=== PATIENT | male | born 1970 | race Hispanic/Latino ===

== ENCOUNTER 2020-11-18 20:38 | Emergency (ER) | payer SELFPAY ==
[~2020-11-18 20:38] MED LIST: EPINEPHrine 1 MG/10 ML SYRINGE ONE; SODIUM BICARB 8.4% 50 MEQ/50 ML SYRINGE IV ONE; SODIUM CHLORIDE IV ONE
[2020-11-18] MEDS ORDERED: SODIUM CHLORIDE 0.9% 1000 ML IV SOLN IV ONE (21:05)
[2020-11-18] MEDS ORDERED: VANCOMYCIN 1,000 MG in SODIUM CHLORIDE 0.9% 500 ML 500 ML IV ONE (21:05)
[2020-11-18] MEDS ORDERED: PIPERACIL/TAZOBACTA 4.5/NS 100 4.5 GM/100 ML VIAL IV ONE (21:05)
--- NOTE | 2020-11-18 21:16 | XRay Report ---
CHEST 1 VIEW 11/18/2020 8:48 PM INDICATION / CLINICAL INFORMATION: AMS. COMPARISON: None available. FINDINGS: SUPPORT DEVICES: None. HEART / MEDIASTINUM: No significant abnormality. LUNGS / PLEURA: There is a moderate right pleural effusion with right basilar opacification. No pneum othorax. ADDITIONAL FINDINGS: No significant additional findings. IMPRESSION: 1. Moderate right pleural effusion with right basilar opacification. Underlying infectious process is not excluded. Signer Name: Virgilio Briones DO Signed: 11/18/2020 9:11 PM Workstation Name: [id number]
[2020-11-18 21:32] LABS: Mean Corpuscular HGB Conc 32 % (32-34); Platelet Count 186 K/mm3 (140-440); Red Blood Count 1.28 M/mm3 (3.65-5.03); Red Cell Distribution Width 19.3 % (13.2-15.2)
[2020-11-18 21:34] LABS: Hematocrit 16.2 % (35.5-45.6); Hemoglobin 5.2 gm/dl (11.8-15.2); Mean Corpuscular Volume 127 fl (84-94)
[2020-11-18] MEDS ORDERED: SODIUM CHLORIDE 0.9% 500 ML 500 ML IV ONE (21:45)
[2020-11-18 21:49] LABS: Albumin 2.1 g/dL (3.9-5); Calcium 8.4 mg/dL (8.4-10.2)
[2020-11-18 21:50] LABS: INR 3.51 (0.87-1.13)
[2020-11-18 21:51] LABS: Partial Thromboplastin Time 55.9 Sec. (24.2-36.6)
[2020-11-18] MEDS ORDERED: VANCOMYCIN/NS 1 GM/250 ML 1 GM/250 ML BAG IV ONE (22:13)
[2020-11-18 22:52] LABS: Band Neutrophils # (Manual) 0.3 K/mm3; Total Cells Counted 100
[2020-11-18 22:54] LABS: Anisocytosis 1+; Macrocytosis 2+; Platelet Estimate Consistent w Auto
[2020-11-18] MEDS ORDERED: NORepinephrine/NS 4 MG-250 ML 4 MG/250 ML BAG IV SCH ×2 (23:00)
[2020-11-18 23:26] VITALS: BP 86/37
--- NOTE | 2020-11-19 00:32 | Emergency Department Report ---
ED Altered Mental Status HPI - General Chief Complaint: Altered Mental Status Stated Complaint: HERNIA Time Seen by Provider: 11/18/20 20:41 Source: EMS Mode of arrival: Stretcher Limitations: Altered Mental Status - History of Present Illness Initial Comments: 50-year-old male, unknown past medical history, presents to ED with altered mental status. Apparently EMS was called by patient's friend for altered mental status. Only history that was given by the friend is that patient has a multiyear history of right inguinal hernia. EMS reports patient was in unkempt conditions. Patient hypotensive. Patient is altered and unable to give any history. MD Complaint: altered mental status -: unknown Severity: severe Consistency of Symptoms: constant Treatments Prior to Arrival: IV fluid - Related Data Allergies Allergy/AdvReac Type Severity Reaction Status Date / Time No Known Drug Allergies Allergy Unknown Verified 11/18/20 20:56 ED Review of Systems ROS: Stated complaint: HERNIA Other details as noted in HPI Comment: Unobtainable due to pts medical conditions ED Past Medical Hx - Past Medical History Previous Medical History?: No - Surgical History Past Surgical History?: No - Social History Smoking Status: Unknown if ever smoked Substance Use Type: None ED Physical Exam - General Limitations: Altered Mental Status General appearance: obtunded - Head Head exam: Present: atraumatic, normocephalic - Eye Eye exam: Present: PERRL, EOMI, scleral icterus - ENT ENT exam: Present: mucous membranes dry - Neck Neck exam: Present: normal inspection - Respiratory Respiratory exam: Present: normal lung sounds bilaterally, respiratory distress, other (Tachypnea) - Cardiovascular Cardiovascular Exam: Present: normal rhythm, tachycardia - GI/Abdominal GI/Abdominal exam: Present: soft. Absent: distended - exam: Present: other (Severe swelling to right scrotum, slightly larger than a football, with areas that appear to be gangrenous and purulent discharge present) - Extremities Exam Extremities exam: Present: other (Edema present to bilateral lower extremities, right greater than left) - Neurological Exam Neurological exam: Present: altered - Psychiatric Psychiatric exam: Present: flat affect - Skin Skin exam: Present: warm, dry, other (Severely jaundiced) ED Course Vital Signs 11/18/20 11/18/20 11/18/20 20:50 20:55 21:02 Temperature 97.0 F L Pulse Rate 112 H 108 H Respiratory 20 31 H Rate Blood Pressure O2 Sat by Pulse 97 Oximetry 11/18/20 11/18/20 11/18/20 21:07 21:16 21:30 Temperature Pulse Rate 103 H 104 H Respiratory 26 H 32 H Rate Blood Pressure 73/31 86/24 O2 Sat by Pulse 98 99 100 Oximetry 11/18/20 11/18/20 11/18/20 21:45 22:00 22:15 Temperature Pulse Rate 104 H 105 H 102 H Respiratory 28 H 31 H 32 H Rate Blood Pressure 78/23 82/25 84/33 O2 Sat by Pulse 100 100 100 Oximetry 11/18/20 11/18/20 11/18/20 22:30 22:46 23:00 Temperature Pulse Rate 97 H 90 Respiratory 35 H 34 H 28 H Rate Blood Pressure 76/27 81/27 75/27 O2 Sat by Pulse 100 100 100 Oximetry 11/18/20 23:16 Temperature Pulse Rate 92 H Respiratory 28 H Rate Blood Pressure 86/37 O2 Sat by Pulse 90 Oximetry - Reevaluation(s) Reevaluation #1: 11/18/20 23:22 Had extensive conversation with the brother Anthony Joel and family friend Clayton Castillo here in the ED. Clayton is the friend that called [phone] mónica. They both report that patient had longstanding history of alcohol abuse. It is also reported that patient was urged by the both of them to seek medical attention for his hernia and declining health, however patient refused. Patient had not seen a physician in quite some time. Spoke with them regarding patient's abnormal lab values. 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 Reevaluation #2: 11/19/20 00:38 00:[address] scanner for CODE BLUE. Patient asystole, pulseless, apneic. ACLS was initiated. Patient was bagged throughout the code with [id number]. O2 sats 100% throughout. Patient received 3 rounds of ACLS which included sodium bicarb x1 and epi x3. Patient remained in asystole. Ultimately unable to achieve ROSC. Time of was called at 00:14. Reevaluation #3: 11/19/20 00:53 I spoke w/ patient's brother over the phone to notify him of patient's . - Lab Data Result diagrams: 11/18/20 20:59 11/18/20 20:59 Lab Results 11/18/20 11/18/20 11/18/20 Range/Units 20:59 20:59 20:59 WBC 28.3 H (4.5-11.0) K/mm3 RBC 1.28 L (3.65-5.03) M/mm3 Hgb 5.2 L* (11.8-15.2) gm/dl Hct 16.2 L* (35.5-45.6) % MCV 127 H (84-94) fl MCH 41 H (28-32) pg MCHC 32 (32-34) % RDW 19.3 H (13.2-15.2) % Plt Count 186 (140-440) K/mm3 Lymph # (Auto) Master Rigger Add Manual Diff Complete Total Counted 100 Seg Neuts % (Manual) 83.0 H (40.0-70.0) % Band Neutrophils % 1.0 % Lymphocytes % (Manual) 8.0 L (13.4-35.0) % Monocytes % (Manual) 7.0 (0.0-7.3) % Metamyelocytes % 1.0 % Nucleated RBC % 9.0 H (0.0-0.9) % Seg Neutrophils # Man 25.6 H (1.8-7.7) K/mm3 Band Neutrophils # 0.3 K/mm3 Lymphocytes # (Manual) 2.5 (1.2-5.4) K/mm3 Abs React Lymphs (Man) 0.0 K/mm3 Monocytes # (Manual) 2.2 H (0.0-0.8) K/mm3 Eosinophils # (Manual) 0.0 (0.0-0.4) K/mm3 Basophils # (Manual) 0.0 (0.0-0.1) K/mm3 Metamyelocytes # 0.3 K/mm3 Myelocytes # 0.0 K/mm3 Promyelocytes # 0.0 K/mm3 Blast Cells # 0.0 K/mm3 WBC Morphology Not Reportable Hypersegmented Neuts Not Reportable Hyposegmented Neuts Not Reportable Hypogranular Neuts Not Reportable Smudge Cells Not Reportable Toxic Granulation Not Reportable Toxic Vacuolation Not Reportable Dohle Bodies Not Reportable Pelger-Huet Anomaly Not Reportable Hung Rods Not Reportable Platelet Estimate Consistent w auto Clumped Platelets Not Reportable Plt Clumps, EDTA Not Reportable Large Platelets Not Reportable Giant Platelets Not Reportable Platelet Satelliting Not Reportable Plt Morphology Comment Not Reportable RBC Morphology Not Reportable Dimorphic RBCs Not Reportable Polychromasia Few Hypochromasia Not Reportable Poikilocytosis Not Reportable Anisocytosis 1+ Microcytosis Not Reportable Macrocytosis 2+ Spherocytes Not Reportable Pappenheimer Bodies Not Reportable Sickle Cells Not Reportable Target Cells Not Reportable Tear Drop Cells Not Reportable Ovalocytes Not Reportable Helmet Cells Not Reportable [place] Bodies Not Reportable [place] Rings Not Reportable [place] Cells Not Reportable Bite Cells Not Reportable Crenated Cell Not Reportable Elliptocytes Not Reportable Acanthocytes (Spur) Not Reportable Rouleaux Not Reportable Hemoglobin C Crystals Not Reportable Schistocytes Not Reportable Malaria parasites Not Reportable John Paul Bodies Not Reportable Hem Pathologist Commnt No PT 35.2 H (12.2-14.9) Sec. INR 3.51 H (0.87-1.13) APTT 55.9 H (24.2-36.6) Sec. Sodium 134 L (137-145) mmol/L Potassium 3.8 (3.6-5.0) mmol/L Chloride 93.5 L (98-107) mmol/L Carbon Dioxide 14 L (22-30) mmol/L Anion Gap 30 mmol/L BUN 75 H (9-20) mg/dL Creatinine 3.3 H (0.8-1.3) mg/dL Estimated GFR 20 ml/min BUN/Creatinine Ratio 23 % Glucose 88 (75-100) mg/dL Lactic Acid (0.7-2.0) mmol/L Calcium 8.4 (8.4-10.2) mg/dL Total Bilirubin 17.50 H (0.1-1.2) mg/dL AST 168 H (5-40) units/L ALT 69 H (7-56) units/L Alkaline Phosphatase 86 (35-129) units/L Ammonia (25-60) umol/L Total Protein 6.2 L (6.3-8.2) g/dL Albumin 2.1 L (3.9-5) g/dL Albumin/Globulin Ratio 0.5 % Blood Type Antibody Screen Crossmatch 11/18/20 11/18/20 11/18/20 Range/Units 20:59 20:59 21:49 WBC (4.5-11.0) K/mm3 RBC (3.65-5.03) M/mm3 Hgb (11.8-15.2) gm/dl Hct (35.5-45.6) % MCV (84-94) fl MCH (28-32) pg MCHC (32-34) % RDW (13.2-15.2) % Plt Count (140-440) K/mm3 Lymph # (Auto) Add Manual Diff Total Counted Seg Neuts % (Manual) (40.0-70.0) % Band Neutrophils % % Lymphocytes % (Manual) (13.4-35.0) % Monocytes % (Manual) (0.0-7.3) % Metamyelocytes % % Nucleated RBC % (0.0-0.9) % Seg Neutrophils # Man (1.8-7.7) K/mm3 Band Neutrophils # K/mm3 Lymphocytes # (Manual) (1.2-5.4) K/mm3 Abs React Lymphs (Man) K/mm3 Monocytes # (Manual) (0.0-0.8) K/mm3 Eosinophils # (Manual) (0.0-0.4) K/mm3 Basophils # (Manual) (0.0-0.1) K/mm3 Metamyelocytes # K/mm3 Myelocytes # K/mm3 Promyelocytes # K/mm3 Blast Cells # K/mm3 WBC Morphology Hypersegmented Neuts Hyposegmented Neuts Hypogranular Neuts Smudge Cells Toxic Granulation Toxic Vacuolation Dohle Bodies Pelger-Huet Anomaly Hung Rods Platelet Estimate Clumped Platelets Plt Clumps, EDTA Large Platelets Giant Platelets Platelet Satelliting Plt Morphology Comment RBC Morphology Dimorphic RBCs Polychromasia Hypochromasia Poikilocytosis Anisocytosis Microcytosis Macrocytosis Spherocytes Pappenheimer Bodies Sickle Cells Target Cells Tear Drop Cells Ovalocytes Helmet Cells [place] Bodies [place] Rings Marcello Cells Bite Cells Crenated Cell Elliptocytes Acanthocytes (Spur) Rouleaux Hemoglobin C Crystals Schistocytes Malaria parasites John Paul Bodies Hem Pathologist Commnt PT (12.2-14.9) Sec. INR (0.87-1.13) APTT (24.2-36.6) Sec. Sodium (137-145) mmol/L Potassium (3.6-5.0) mmol/L Chloride (98-107) mmol/L Carbon Dioxide (22-30) mmol/L Anion Gap mmol/L BUN (9-20) mg/dL Creatinine (0.8-1.3) mg/dL Estimated GFR ml/min BUN/Creatinine Ratio % Glucose (75-100) mg/dL Lactic Acid 11.00 H* (0.7-2.0) mmol/L Calcium (8.4-10.2) mg/dL Total Bilirubin (0.1-1.2) mg/dL AST (5-40) units/L ALT (7-56) units/L Alkaline Phosphatase (35-129) units/L Ammonia 84.0 H (25-60) umol/L Total Protein (6.3-8.2) g/dL Albumin (3.9-5) g/dL Albumin/Globulin Ratio % Blood Type A POSITIVE Antibody Screen Negative Crossmatch See Detail 11/18/20 Range/Units 23:34 WBC (4.5-11.0) K/mm3 RBC (3.65-5.03) M/mm3 Hgb (11.8-15.2) gm/dl Hct (35.5-45.6) % MCV (84-94) fl MCH (28-32) pg MCHC (32-34) % RDW (13.2-15.2) % Plt Count (140-440) K/mm3 Lymph # (Auto) Add Manual Diff Total Counted Seg Neuts % (Manual) (40.0-70.0) % Band Neutrophils % % Lymphocytes % (Manual) (13.4-35.0) % Monocytes % (Manual) (0.0-7.3) % Metamyelocytes % % Nucleated RBC % (0.0-0.9) % Seg Neutrophils # Man (1.8-7.7) K/mm3 Band Neutrophils # K/mm3 Lymphocytes # (Manual) (1.2-5.4) K/mm3 Abs React Lymphs (Man) K/mm3 Monocytes # (Manual) (0.0-0.8) K/mm3 Eosinophils # (Manual) (0.0-0.4) K/mm3 Basophils # (Manual) (0.0-0.1) K/mm3 Metamyelocytes # K/mm3 Myelocytes # K/mm3 Promyelocytes # K/mm3 Blast Cells # K/mm3 WBC Morphology Hypersegmented Neuts Hyposegmented Neuts Hypogranular Neuts Smudge Cells Toxic Granulation Toxic Vacuolation Dohle Bodies Pelger-Huet Anomaly Hung Rods Platelet Estimate Clumped Platelets Plt Clumps, EDTA Large Platelets Giant Platelets Platelet Satelliting Plt Morphology Comment RBC Morphology Dimorphic RBCs Polychromasia Hypochromasia Poikilocytosis Anisocytosis Microcytosis Macrocytosis Spherocytes Pappenheimer Bodies Sickle Cells Target Cells Tear Drop Cells Ovalocytes Helmet Cells [place] Bodies [place] Rings [place] Cells Bite Cells Crenated Cell Elliptocytes Acanthocytes (Spur) Rouleaux Hemoglobin C Crystals Schistocytes Malaria parasites John Paul Bodies Hem Pathologist Commnt PT (12.2-14.9) Sec. INR (0.87-1.13) APTT (24.2-36.6) Sec. Sodium (137-145) mmol/L Potassium (3.6-5.0) mmol/L Chloride (98-107) mmol/L Carbon Dioxide (22-30) mmol/L Anion Gap mmol/L BUN (9-20) mg/dL Creatinine (0.8-1.3) mg/dL Estimated GFR ml/min BUN/Creatinine Ratio % Glucose (75-100) mg/dL Lactic Acid 11.20 H* (0.7-2.0) mmol/L Calcium (8.4-10.2) mg/dL Total Bilirubin (0.1-1.2) mg/dL AST (5-40) units/L ALT (7-56) units/L Alkaline Phosphatase (35-129) units/L Ammonia (25-60) umol/L Total Protein (6.3-8.2) g/dL Albumin (3.9-5) g/dL Albumin/Globulin Ratio % Blood Type Antibody Screen Crossmatch - Radiology Data Radiology results: report reviewed, image reviewed - Medical Decision Making 50-year-old male presents to ED with severe sepsis, 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 Patient hypotensive. Due to his Gia's gangrene and avoided placing a femoral central line. Due to patient's coagulopathy avoided placing an IJ central line. IO was placed for medication administration. Patient was given IV fluids 30 cc/kg, along with vancomycin and Zosyn. Patient multiple lab abnormalities including coagulopathy, liver failure, renal failure, anemia, metabolic acidosis, elevated white count. TRISTAN BLUE was called while patient was in the CT scanner. Code was run according to ACLS protocols, however, we were unable to obtain ROSC. I had previously spoken with the patient's brother and family friend regarding how critical patient was and relayed that could possibly be imminent. Following the code, I called patient's brother to inform him of patient's . - Differential Diagnosis Gia's gangrene, sepsis, liver cirrhosis Critical Care Time: Yes Critical care time in (mins) excluding proc time.: 80 Critical care attestation.: If time is entered above; I have spent that time in minutes in the direct care of this critically ill patient, excluding procedure time. Critical Care Time: 80 min ED Disposition Clinical Impression: Acute encephalopathy, Severe sepsis, Liver failure, Anemia, Coagulopathy, Metabolic acidosis, Acute renal failure, Gia's gangrene, Cardiac arrest, Pleural effusion Disposition: 20 Is pt being admited?: No Condition: Stable Time of Disposition: 00:42
--- NOTE | 2020-11-19 00:46 | Cat Scan Report ---
CT HEAD WITHOUT CONTRAST INDICATION: Altered Mental Status / Fall, cardiopulmonary arrest immediately following scan, patient now TECHNIQUE: All CT scans at this location are performed using CT dose reduction for ALARA by means of automated exposure control. COMPARISON: None available. FINDINGS: BRAIN: No hemorrhage or mass effect are seen. No evidence of acute infarction is noted. Mild atrophic changes are seen which are disproportionate to age. ORBITS: Normal as visualized. SOFT TISSUES OF HEAD: Normal. CALVARIUM: Normal. VISUALIZED PARANASAL SINUSES AND MASTOID AIR CELLS: Clear. ADDITIONAL FINDINGS: None. IMPRESSION: No acute intracranial abnormality. Signer Name: Gato Santos MD Signed: 11/19/2020 12:41 AM Workstation Name: [id number]
== END 2020-11-19 02:34 ==
LOC: ED 20:38
DX: G93.40 Encephalopathy, unspecified (principal); I46.9 Cardiac arrest, cause unspecified; R65.20 Severe sepsis without septic shock; K72.90 Hepatic failure, unspecified without coma; N49.3 Fournier gangrene; J90 Pleural effusion, not elsewhere classified; D64.9 Anemia, unspecified; E87.2 Acidosis; N19 Unspecified kidney failure
CPT/HCPCS: 36415; 36680; 70450; 71045; 80053; 82140; 85007; 85025; 85610; 85730; 86850; 86900; 86901; 86920; 87040; 92950; 96365; 96366; 96367; 96368; 99291; 99292; J0171; J2543; J3370; J7030; J7040